=== PATIENT | female | born 1995 | race Caucasian/White ===

== ENCOUNTER 2018-06-15 23:04 | Emergency (ER) | payer SELFPAY ==
[2018-06-16 00:14] LABS: Hematocrit 34.7 % (30.3-42.9); Hemoglobin 11.2 gm/dl (10.1-14.3); Mean Corpuscular Volume 83 fl (79-97)
[2018-06-16 00:15] LABS: Basophils # (Auto) 0.1 K/mm3 (0.0-0.1); Basophils % (Auto) 0.5 % (0.0-1.8); Eosinophils # (Auto) 0.2 K/mm3 (0.0-0.4); Eosinophils % (Auto) 1.6 % (0.0-4.3); Lymphocytes # (Auto) 2.6 K/mm3 (1.2-5.4); Lymphocytes % (Auto) 22.4 % (13.4-35.0); Mean Corpuscular HGB Conc 32 % (30-34); Mean Platelet Volume 8.4 fl (6-12); Monocytes # (Auto) 0.6 K/mm3 (0.0-0.8); Monocytes % (Auto) 5.2 % (0.0-7.3); Platelet Count 343 K/mm3 (140-440); Red Cell Distribution Width 19.5 % (13.2-15.2)
[2018-06-16 01:20] LABS: Bilirubin,Urine Negative (Negative); Blood,Urine Large (Negative); Color,Urine Red (Yellow)
[2018-06-16 01:21] LABS: RBC,Urine > 182.0 /HPF (0.0-6.0); Urobilinogen,Urine < 2.0 mg/dL (<2.0)
[2018-06-16] MEDS ORDERED: XYLOCAINE 1% MPF 5 mL INFILTRATI ONE (01:40)
[2018-06-16] MEDS ORDERED: ROCEPHIN IM ONE (01:40)
[2018-06-16] MEDS ORDERED: ZITHROMAX PO ONE (01:40)
--- NOTE | 2018-06-16 01:41 | Emergency Department Report ---
ED Abdominal Pain HPI - General Chief Complaint: Abdominal Pain Stated Complaint: VAGINAL BLEEDING Time Seen by Provider: 06/16/18 01:40 Source: patient Mode of arrival: Ambulatory Limitations: No Limitations - History of Present Illness Initial Comments: Patient is a 22-year-old female that comes to the ER with vaginal bleeding during . This is the patient's fourth at the age of 22. She has one living child and has had 2 previous miscarriages. She states that she did go to the [facility] and they estimated her due date at 02/10/2019. However, based on her last menstrual period of 04/04/2018 at that appointment dates and the size of the products of conception were not consistent so the patient has a follow-up appointment on Saturday with the [facility]. However, she started bleeding on Saturday and then again on Saturday. On Saturday she passed tissue. Patient was ambulatory and nontoxic, and afebrile while in the emergency room. Severity scale (0 -10): 0 - Related Data Home Medications Medication Instructions Recorded Confirmed Last Taken Pnv with Ca,No.72/Iron/FA 1 tab PO DAILY 07/24/13 08/22/14 07/31/13 [ Plus Tablet] 1 Allergies Allergy/AdvReac Type Severity Reaction Status Date / Time No Known Allergies Allergy Verified 06/18/13 18:13 ED Review of Systems ROS: Stated complaint: VAGINAL BLEEDING Other details as noted in HPI Comment: All other systems reviewed and negative ED Past Medical Hx - Past Medical History Previous Medical History?: Yes Hx Hypertension: No Hx Congestive Heart Failure: No Hx Diabetes: No Hx Deep Vein Thrombosis: No Hx Renal Disease: No Hx Sickle Cell Disease: No Hx Seizures: No Hx Kidney Stones: No Hx Asthma: No Hx COPD: No Hx Tuberculosis: No Hx HIV: No Additional medical history: Miscarriages X 2. - Surgical History Past Surgical History?: No - Family History Family history: no significant - Social History Smoking Status: Never Smoker Substance Use Type: None - Medications Home Medications: Home Medications Medication Instructions Recorded Confirmed Last Taken Type Pnv with Ca,No.72/Iron/FA 1 tab PO DAILY 07/24/13 08/22/14 07/31/13 History [ Plus Tablet] 1 ED Physical Exam - General Limitations: No Limitations General appearance: alert - Head Head exam: Present: normocephalic - Eye Eye exam: Present: normal appearance, PERRL - ENT ENT exam: Present: mucous membranes moist - Neck Neck exam: Present: normal inspection - Respiratory Respiratory exam: Present: normal lung sounds bilaterally - Cardiovascular Cardiovascular Exam: Present: regular rate - GI/Abdominal GI/Abdominal exam: Present: soft, normal bowel sounds - Rectal Rectal exam: Present: deferred - Speculum exam: Present: vaginal bleeding. Absent: vaginal discharge, cervical discharge, tissue Bi-manual exam: Present: normal bi-manual exam. Absent: cervical motion tendernes, adnexal tenderness, adnexal mass, uterine enlargement, uterine tenderness - Extremities Exam Extremities exam: Present: normal inspection, full ROM - Back Exam Back exam: Present: normal inspection, full ROM - Neurological Exam Neurological exam: Present: alert, oriented X3 - Psychiatric Psychiatric exam: Present: normal affect, normal mood - Skin Skin exam: Present: warm, dry, intact ED Course Vital Signs 06/15/18 06/15/18 23:08 23:28 Temperature 98.1 F 98.1 F Pulse Rate 89 95 H Respiratory 18 18 Rate Blood Pressure 140/87 140/87 O2 Sat by Pulse 100 100 Oximetry ED Medical Decision Making - Lab Data Result diagrams: 06/15/18 23:51 - Radiology Data Radiology results: report reviewed, image reviewed - Medical Decision Making LMP 2-1 edc 12-10 PMH NONE PSH NONE RX ANTIBIOTIC PER PT BUT SHE DOES NOT KNOW THE NAME. LABS NOTED TREATED EMPIRICALLY FOR GC GIVEN URINE AND AGE/RISK PT WILL DC HOME AND FOLLOW UP WITH OBGYN IN THE AM Lab Results 06/15/18 06/15/18 06/15/18 Range/Units 23:47 23:51 23:51 WBC 11.8 H (4.5-11.0) K/mm3 RBC 4.20 (3.65-5.03) M/mm3 Hgb 11.2 (10.1-14.3) gm/dl Hct 34.7 (30.3-42.9) % MCV 83 (79-97) fl MCH 27 L (28-32) pg MCHC 32 (30-34) % RDW 19.5 H (13.2-15.2) % Plt Count 343 (140-440) K/mm3 Lymph % (Auto) 22.4 (13.4-35.0) % [place] % (Auto) 5.2 (0.0-7.3) % Eos % (Auto) 1.6 (0.0-4.3) % Baso % (Auto) 0.5 (0.0-1.8) % Lymph # 2.6 (1.2-5.4) K/mm3 [place] # 0.6 (0.0-0.8) K/mm3 Eos # 0.2 (0.0-0.4) K/mm3 Baso # 0.1 (0.0-0.1) K/mm3 Seg Neutrophils % 70.3 H (40.0-70.0) % Seg Neutrophils # 8.3 H (1.8-7.7) K/mm3 HCG, Quant 3332 H (0-4) mIU/mL Urine Color Red (Yellow) Urine Turbidity Hazy (Clear) Urine pH 8.0 H (5.0-7.0) Ur Specific [place] 1.005 (1.003-1.030) Urine Protein 100 mg/dl (Negative) mg/dL Urine Glucose (UA) Negative (Negative) mg/dL Urine Ketones Negative (Negative) mg/dL Urine Blood Large A (Negative) Urine Nitrite Negative (Negative) Urine Bilirubin Negative (Negative) Urine Urobilinogen < 2.0 (<2.0) mg/dL Ur Leukocyte Esterase Moderate (Negative) Urine WBC (Auto) 37.0 H (0.0-6.0) /HPF Urine RBC (Auto) > 182.0 (0.0-6.0) /HPF U Epithel Cells (Auto) 1.0 (0-13.0) /HPF Vital Signs 06/15/18 06/15/18 23:08 23:28 Temperature 98.1 F 98.1 F Pulse Rate 89 95 H Respiratory 18 18 Rate Blood Pressure 140/87 140/87 O2 Sat by Pulse 100 100 Oximetry BLOOD TYPE OPOS Critical care attestation.: If time is entered above; I have spent that time in minutes in the direct care of this critically ill patient, excluding procedure time. ED Disposition Clinical Impression: Threatened Disposition: DC-01 TO HOME OR SELFCARE Is pt being admited?: No Does the pt Need Aspirin: No Condition: Stable Instructions: Spontaneous Miscarriage (ED), Threatened Miscarriage (ED) Additional Instructions: BLOOD TYPE OPOS GIVEN ELIZABETN [place]OL[place] US COMPLETED BETA QUANT 3339 PELVIC REST FOLLOW UP WITH OBGYN IN AM INTENDED HYDRATE WELL WITH WATER TYLENOL NEEDED FOR PAIN Referrals: ROMULO MCPHERSON MD [Staff Physician] - 3-5 Days Time of Disposition: 02:11
--- NOTE | 2018-06-16 01:53 | Ultrasound Report ---
PROCEDURE: US OB TRANSVAGINAL TECHNIQUE: Transvaginal imaging was obtained of the pelvis. HISTORY: vaginal bleeding COMPARISONS: None FINDINGS: The uterus is anteverted measuring 8.9 x 4.5 x 5.7 cm. The endometrial thickness is 14 mm. It has a h eterogeneous echotexture. There is no evidence of an IUP or gestational sac. Free fluid is not seen. Both ovaries are normal in size contour and echotexture. The right ovary measures 3.2 x 2.3 x 3.4 cm. Left ovary measures 3.7 x 1.8 by 1.7 cm. IMPRESSION: No evidence of an IUP. Thickened heterogeneous echotexture of the endometrium. The findings may be re lated to a complete with retained products of conception.. This document is electronically signed by Srinivas Casey MD., June 16 2018 01:51:07 AM ET
--- NOTE | 2018-06-16 01:55 | Ultrasound Report ---
PROCEDURE: US OB <= 14 WEEKS FETUS TECHNIQUE: Transabdominal imaging was obtained of the pelvis. HISTORY: vaginal bleeding COMPARISONS: None FINDINGS: The uterus is anteverted measuring 8.9 x 4.5 x 5.7 cm. The endometrial thickness is 14.0 mm. There is no evidence of an IUP. Free fluid is not seen. Both ovaries are normal in size contour and echotexture. The right ovary measures 3.2 x 2.3 x 3.4 cm. Left ovary measures 3.7 x 1.8 x 1.7 cm. IMPRESSION: Thickened endometrium without evidence of IUP. The findings may be on the basis of a complete abortio n with mild retained products of conception. Further evaluation is recommended with containing serial beta-hCGs or follow-up pelvic sonogram.. This document is electronically signed by Srinivas Casey MD., June 16 2018 01:52:43 AM ET
[2018-06-17 18:00] VITALS: BP 111/66
== END 2018-06-16 03:38 | disposition home or self-care (01) ==
LOC: ED 23:04
DX: O20.0 Threatened abortion (principal); Z3A.01 Less than 8 weeks gestation of pregnancy
CPT/HCPCS: 36415; 76801; 76817; 81001; 84702; 85025; 96372; 99284; J0696

== ENCOUNTER 2019-03-17 18:11 | Outpatient (CLI) | payer SELFPAY ==
[2019-03-17] MEDS ORDERED: LACTATED RINGERS 1,000 ML IV ONE (19:41)
[2019-03-17 20:01] LABS: Bilirubin,Urine NEG (Negative); Blood,Urine NEG (Negative); Color,Urine Straw (Yellow); Mucus,Urine FEW /HPF; Protein,Urine <15 mg/dL mg/dL (Negative); Urobilinogen,Urine < 2.0 mg/dL (<2.0)
[2019-03-17 20:04] VITALS: BP 102/63
== END 2019-03-17 21:44 | disposition home or self-care (01) ==
LOC: TRG 18:11
PROVIDERS: ATTEND Obstetrics & Gynecology
DX: O26.893 Other specified pregnancy related conditions, third trimester (principal); R25.2 Cramp and spasm; O47.03 False labor before 37 completed weeks of gestation, third trimester; O99.013 Anemia complicating pregnancy, third trimester; D64.9 Anemia, unspecified; Z3A.29 29 weeks gestation of pregnancy
CPT/HCPCS: 59025; 81001; 96360; J7120

== ENCOUNTER 2021-01-11 06:33 | Day surgery (SDC) | payer OTHER ==
[2021-01-05 12:13] LABS: Hematocrit 37.3 % (30.3-42.9); Hemoglobin 12.4 gm/dl (10.1-14.3); Mean Corpuscular HGB Conc 33 % (30-34); Mean Corpuscular Volume 93 fl (79-97); Platelet Count 352 K/mm3 (140-440); Red Cell Distribution Width 12.4 % (13.2-15.2)
--- NOTE | 2021-01-10 21:47 | History and Physical Report ---
History of Present Illness Date of examination: 01/11/21 Chief complaint: Undesired Fertility History of present illness: Pt is a 25 year old female who presents for surgical sterilization via salpingectomy. She is aware of long acting reversible contraceptive methods and desires to proceed. Past History Past Medical History: no pertinent history Past Surgical History: no surgical history [employer] History: other (h/o ovarian cyst and spontaneous ) Family/Genetic History: diabetes, hypertension Social history: no significant social history, - Obstetrical History : 6 Para: 3 Hx # Term Pregnancies: 3 Number of Pregnancies: 0 Spontaneous Abortions: 3 Induced : 0 Number of Living Children: 3 Medications and Allergies Allergies Allergy/AdvReac Type Severity Reaction Status Date / Time No Known Allergies Allergy Verified 06/18/13 18:13 Home Medications Medication Instructions Recorded Confirmed Last Taken Type Pnv with Ca,No.72/Iron/FA 1 tab PO DAILY 07/24/13 08/22/14 07/31/13 History [ Plus Tablet] 1 Active Meds: Active Medications Acetaminophen (Acetaminophen 500 Mg Tab) 1,000 mg PO PREOP CONTRERAS Stop: 01/11/21 23:00 Celecoxib (Celecoxib 200 Mg Cap) 200 mg PO PREOP NR Stop: 01/11/21 23:00 Gabapentin (Gabapentin 300 Mg Cap) 300 mg PO PREOP NR Stop: 01/11/21 23:01 Lactated Ringer's (Lactated Ringers) 1,000 mls @ 100 mls/hr IV DIRECT CONTRERAS Stop: 01/11/21 23:59 Midazolam HCl (Midazolam 2 Mg/2 Ml Inj) 2 mg IV PREOP NR Stop: 01/11/21 23:00 Scopolamine (Scopolamine Transdermal Patch 72 Hr) 1 each TD PREOP NR Stop: 01/11/21 06:01 Review of Systems All systems: negative - Vital Signs Vital signs: Vital Signs Temp Pulse Resp BP Pulse Ox 98.3 F 81 20 127/69 100 01/05/21 11:30 01/05/21 11:30 01/05/21 11:30 01/05/21 11:30 01/05/21 11:30 Temp Pulse Resp BP Pulse Ox 98.3 F 81 20 127/69 100 01/05/21 11:30 01/05/21 11:30 01/05/21 11:30 01/05/21 11:30 01/05/21 11:30 - Physical Exam Breasts: Positive: deferred Abdomen: Positive: soft Extremities: Positive: normal Results Result Diagrams: 01/05/21 11:15 All other labs normal. Assessment and Plan A: Undesired Fertility P: Proceed with Laparoscopic bilateral salpingectomy and other indicated procedures
[~2021-01-11 06:33] MED LIST: ACETAMINOPHEN 500 MG TAB PO SCH; CELECOXIB 200 MG CAP PO NR; GABAPENTIN 300 MG CAP PO NR; LACTATED RINGERS 1,000 ML IV SCH; MIDAZOLAM 2 MG/2 ML INJ IV NR; SCOPOLAMINE TRANSDERMAL PATCH 72 HR TD NR; ceFAZolin/Water 2 GM/20 ML 2 GM/20 ML SYRINGE IV NR
[2021-01-11] MEDS ORDERED: propofoL 200 MG/20 ML VIAL IV ONE (07:22)
[2021-01-11] MEDS ORDERED: ROCURONIUM 50 MG/5 ML INJ IV ONE (07:22)
[2021-01-11] MEDS ORDERED: fentaNYL 100 MCG/2 ML INJ ONE (07:23)
[2021-01-11] MEDS ORDERED: BUPIVACAINE/PF (0.5%) 5 MG/1 ML 10 ML VIAL INFILTRATI ONE ×2 (07:29→09:37)
--- NOTE | 2021-01-11 07:40 | Anesthesia Consultation ---
Anesthesia Consult and Med Hx Date of service: 01/11/21 - Airway Anesthetic Teeth Evaluation: Good ROM Head & Neck: Adequate Mental/Hyoid Distance: Adequate Mallampati Class: Class II Intubation Access Assessment: Good - Pulmonary Exam CTA: Yes - Cardiac Exam Cardiac Exam: RRR - Pre-Operative Health Status ASA Pre-Surgery Classification: ASA2 Proposed Anesthetic Plan: General - Pulmonary Hx Smoking: No (WHOLE BODY WEAK) Hx Asthma: No COPD: No Hx Pneumonia: No Hx Sleep Apnea: No - Cardiovascular System Hx Hypertension: No Hx Heart Attack/AMI: No - Central Nervous System Hx Seizures: No Hx Back Pain: Yes (OCC.) Hx Psychiatric Problems: Yes (PP depression-suicidal attempt) - Endocrine Hx Renal Disease: No Hx End Stage Renal Disease: No Hx Hypothyroidism: No Hx Hyperthyroidism: No - Hematic Hx Anemia: Yes (takes iron bid) Hx Sickle Cell Disease: No - Other Systems Hx Alcohol Use: No Hx Substance Use: No Hx Cancer: No
--- NOTE | 2021-01-11 07:40 | Anesthesia Day of Surgery ---
Anesthesia Day of Surgery - Day of Surgery Patient Examined: Yes Patient H&P Reviewed: Yes Patient is NPO: Yes
[2021-01-11] MEDS ORDERED: HYDROmorphone 1 MG/1 ML INJ IV PRN (07:50)
[2021-01-11] MEDS ORDERED: oxyCODONE /ACETAMINOPHEN 5-325MG TAB PO PRN (07:50)
[2021-01-11] MEDS ORDERED: ONDANSETRON 4 MG/2 ML INJ IV PRN (08:00)
[2021-01-11] MEDS ORDERED: dexAMETHasone 20 MG/5 ML VIAL ONE (08:09)
[2021-01-11] MEDS ORDERED: ONDANSETRON 4 MG/2 ML INJ ONE (08:09)
[2021-01-11] MEDS ORDERED: KETOROLAC 30 MG/1 ML INJ ONE (08:09)
[2021-01-11] MEDS ORDERED: SILVER NITRATE APPLICATOR 1 EA TP ONE ×2 (08:29→09:37)
--- NOTE | 2021-01-11 09:34 | Operative Report ---
Operative Report Operative Report: Date of Surgery: January 11, 2021 Preoperative Diagnosis: Undesired Fertility Postoperative Diagnosis: Same Procedure: Laparoscopic Bilateral Salpingectomy Surgeon: Anna Green MD Anesthesia: GETA Findings: 1) Small anteverted uterus which sounded to 10 cm 2) Normal appearing uterus, ovaries and tubes EBL: 25 mL Urine output: 700 mL Specimen: Bilateral fallopian tubes to pathology Complications: None. Counts correct x 2 Disposition: Stable to PACU Indication for Procedure: This pt is a 25 year old who presents for surgical sterilization. She is aware of long acting reversible contraceptives as well as tubal ligation and she desires to proceed with bilateral salpingectomy. Operation In Detail: After the risks, benefits, complications and alternatives were explained to the patient, she gave informed consent for the procedure. She was then taken to the operating room and placed in the dorsal supine position with her IV noted to be running well and SCDs in place and functioning. General endotracheal anesthesia was induced without difficulty. The patient was then placed in the dorsal lithotomy position and prepped and draped in a normal sterile fashion. A time out was then performed. An exam under anesthesia revealed a small mobile antevereted uterus. A ferrell catheter was placed. A bi-valve speculum was placed in the vagina to visualize the cervix. A single tooth tenaculum was placed on the anterior lip of the cervix for traction. A uterine manipulator was then placed. The single tooth tenaculum and speculum were removed from the vagina atraumatically. The surgeon's gloves were then changed. Attention was then turned to entry into the abdominal cavity. A 5 mm infraumbilical incision was made with an 11 blade. The skin was grasped on either side of the umbilicus and tented up. The Veres needle was placed into the peritoneal cavity, confirmed with a saline drop test. The abdomen was then insufflated with CO2 gas to a pressure of 15 mmHg. A 5 mm Visiport trocar was then placed. An anatomic survey was then performed with findings as indicated above. A second trocar site was created 4 cm superior to the pubic symphysis in the midline measuring 8 mm. An 8 mm trocar was then placed under direct visualization. A third 5 mm trocar was placed in the LLQ under direct visualization. The patient was placed in the Trendelenburg position. The uterus was elevated, and each fallopian tube was followed out to the fimbriae, grasped with a grasper for elevation, and excised using a 5 mm Ligasure device. Both fallopian tubes were removed through the 8 mm port and sent to pathology. At this time, the pneumoperitoneum was released and all instruments and trocars were removed from the abdominal cavity. The incisions were then infiltrated with half percent Marcaine. The incisions were then reapproximated with 3-0 Monocryl in a subcuticular fashion then covered with skin glue. All instruments were then removed atraumatically from the vagina. Silver nitrate and pressure were used to obtain hemostasis of the tenaculum puncture sites. At this time the procedure was ended. The patient was placed into the dorsal supine position and extubated without difficulty. She was subsequently taken to the PACU in stable condition. All instrument, needle and lap counts were correct 2.
[2021-01-11] MEDS ORDERED: SODIUM CHLORIDE 0.9% IRR 1,500 ML BOTTLE IR ONE (09:37)
--- NOTE | 2021-01-11 09:47 | Short Stay Summary ---
Short Stay Documentation Date of service: 01/11/21 - History H&P: dictated Social history: no significant social history, - Allergies and Medications Current Medications: Allergies No Known Allergies Allergy (Verified 06/18/13 18:13) Home Medications Medication Instructions Recorded Confirmed Last Taken Type Pnv with Ca,No.72/Iron/FA 1 tab PO DAILY 07/24/13 08/22/14 07/31/13 History [ Plus Tablet] 1 Active Medications Acetaminophen (Acetaminophen 500 Mg Tab) 1,000 mg PO PREOP CONTRERAS Stop: 01/11/21 23:00 Last Admin: 01/11/21 07:20 Dose: 1,000 mg Documented by: Celecoxib (Celecoxib 200 Mg Cap) 200 mg PO PREOP NR Stop: 01/11/21 23:00 Last Admin: 01/11/21 07:20 Dose: 200 mg Documented by: Gabapentin (Gabapentin 300 Mg Cap) 300 mg PO PREOP NR Stop: 01/11/21 23:01 Last Admin: 01/11/21 07:20 Dose: 300 mg Documented by: Hydromorphone HCl (Hydromorphone 1 Mg/1 Ml Inj) 0.5 mg IV Q10MIN PRN PRN Reason: Pain , Severe (7-10) Stop: 01/11/21 23:00 Lactated Ringer's (Lactated Ringers) 1,000 mls @ 100 mls/hr IV DIRECT CONTRERAS Stop: 01/11/21 23:59 Last Admin: 01/11/21 07:45 Dose: 100 mls/hr Documented by: Cefazolin Sodium (Ancef/Sterile Water 2 Gm/20 Ml) 2 gm in 20 mls @ 80 mls/hr IV PREOP NR; Protocol Stop: 01/11/21 23:59 Midazolam HCl (Midazolam 2 Mg/2 Ml Inj) 2 mg IV PREOP NR Stop: 01/11/21 23:00 Last Admin: 01/11/21 07:54 Dose: 2 mg Documented by: Ondansetron HCl (Ondansetron 4 Mg/2 Ml Inj) 4 mg IV ONCE PRN PRN Reason: Nausea And Vomiting Stop: 01/11/21 16:00 Oxycodone/Acetaminophen (Oxycodone /Acetaminophen 5-325mg Tab) 1 tab PO ONCE PRN PRN Reason: Pain, Moderate (4-6) Stop: 01/11/21 12:00 - Physical exam Breasts: deferred - Brief post op/procedure progress note Date of procedure: 01/11/21 Pre-op diagnosis: Undesired Fertility Post-op diagnosis: same Procedure: Laparoscopic Bilateral Salpingectomy Anesthesia: GETA Findings: 1) Small anteverted uterus which sounded to 10 cm 2) Normal appearing uterus, ovaries and tubes Surgeon: KIM GREEN Estimated blood loss: minimal (25 mL) Pathology: list (bilateral fallopian tubes) Specimen disposition: to lab Condition: stable - Hospital course Hospital course: This patient underwent laparoscopic bilateral salpingectomy which she tolerated well. She was observed in the PACU until she met discharge criteria. She will follow-up in the office in [address] Green. - Discharge Diagnoses (1) Encounter for sterilization Status: Acute Short Stay Discharge Plan Activity: other (Nothing in vagina, no intercourse, no tub baths for 4 wks ) Weight Bearing Status: Full Weight Bearing Diet: regular Wound: keep clean and dry Follow up with: PRIMARY CAREMD [Primary Care Provider] - 7 Days KIM GREEN MD [Staff Physician] - 7 Days Prescriptions: Ibuprofen [Motrin] 800 mg PO Q8HR PRN #30 tablet PRN Reason: Pain, Moderate (4-6) oxyCODONE /ACETAMINOPHEN [Percocet 5/325] 1 tab PO Q6HR PRN #40 tablet PRN Reason: Pain
--- NOTE | 2021-01-11 10:37 | Post Anesthesia Evaluation ---
- Post Anesthesia Evaluation Patient Participated: Yes Airway Patent: Yes Stable Respiratory Function: Yes Nausea/Vomiting: No Temp > 96.8F: Yes Pain Manageable: Yes Adequeate Hydration: Yes Anesthesia Complications: No
[2021-01-11 11:29] VITALS: BP 114/66
== END 2021-01-11 11:20 | disposition home or self-care (01) ==
LOC: OR 06:33
PROVIDERS: ATTEND Obstetrics & Gynecology
DX: Z30.2 Encounter for sterilization (principal); Z20.822 Contact with and (suspected) exposure to COVID-19; F32.9 Major depressive disorder, single episode, unspecified; D64.9 Anemia, unspecified; Z79.899 Other long term (current) drug therapy; Z98.890 Other specified postprocedural states
CPT/HCPCS: 36415; 58661; 84703; 85027; 88302; J0690; J1100; J1885; J2250; J2405; J2704; J3010; J7120; U0003